=== PATIENT | female | born 2000 | race Caucasian/White ===

== ENCOUNTER 2024-12-25 17:00 | Emergency (ER) | payer BC, SELFPAY ==
[2024-12-25 17:02] VITALS: BP 146/85
[2024-12-25] MEDS: AUGMENTIN 875 MG/125 MG 1 TABLET PO (18:09)
--- NOTE | 2024-12-25 19:09 | ED.GENMED ---
History of Present Illness
General
Chief Complaint: Facial Problem
Source: patient
Exam Limitations: none
Time Seen by Provider: 12/25/24 17:36
Nursing documentation reviewed up to this point in time: agreed with
History of Present Illness
History of Present Illness:
see MDM
Past History
Past History
ED Past Medical History: None
Social History
Tobacco: Non-smoker
Review of Systems
Review of Systems
Allergies reviewed?: Yes
All Other Systems: Not applicable
Phy Exam
Physical Exam
Physical Exam:
GENERAL: Alert , in no apparent distress
R face slightly full R cheek, no skin changes
small round lump under the skin palpated abutting the nose ont he R side; mild tendenress
no eye swelling
EYE: pupils equal and reactive
NECK: Supple
ENT: o/p clr, mmm.
TMs normal
b/l turbinate redness, no obvious drainage; no wounds in the nose
CARDIAC: Regular rate and rhythm .
LUNGS: Clear breath sounds bilaterally, no acute respiratory distress, no wheezes/rales/rhonchi
SKIN: Warm and dry, skin intact.
PSYCH: Normal and appropriate interaction.
Course
Orders/Labs/Results
Orders:
Orders
12/25/24 17:56
Amoxicillin 875 mg/Clav 125 mg [Augmentin 875 mg/125 mg] 1 tablet PO NOW STA
Vital Signs
Initial and Last Documented VS:
Initial Vital Signs
Temp Pulse Resp BP Pulse Ox
36.9 C 105 18 146/85 100
12/25/24 17:02 12/25/24 17:02 12/25/24 17:02 12/25/24 17:02 12/25/24 17:02
Last Documented Vital Signs
Temp Pulse Resp BP Pulse Ox
36.9 C 105 18 146/85 100
12/25/24 17:02 12/25/24 17:02 12/25/24 17:02 12/25/24 17:02 12/25/24 19:11
MDM/Problems Addressed
Differential Diagnosis Includes:
see MDM
MDM/Problems Addressed:
Note:
CHIEF COMPLAINT(S)
Swelling on the side of the face with a palpable lump under the skin.
HISTORY OF PRESENT ILLNESS
The patient is a 24-year-old female with no significant past medical history who presents with swelling on the right side of her face, accompanied by a palpable lump under the skin near her nose on the R side above the nostril. She reports noticing
the lump a few days ago and initially thought it might be acne. However, she observed that the swelling has increased, and it started to progress closer to her eye this morning when she woke up.since waking the swelling has improved now and is just
of the R cheek The swelling is described as being under the skin without any visible inflammation inside her nose. The patient denies any associated pain, fever, or chills. She has experienced facial swelling but no significant congestion or sinus
issues, only mild nasal stuffiness and changes in the nasal discharge over the past few weeks, attributed to allergies.
PHYSICAL EXAM
- Facial Examination: The patient has minimal swelling on the right side of the face with a palpable, deep, round lump beneath the soft tissue approx 0.5 cm, but no obvious papule visible. There is no visible swelling or inflammation inside the
nasal cavity.
eye normal
ears normal
- Nursing notes reviewed and vital signs reviewed.
PROBLEM LIST
- Acute Problems:
- Facial swelling
- Subcutaneous lump on the cheek
PLAN
- Initiate treatment with amoxicillin-clavulanate (Augmentin) to be taken twice daily for 10 days. The patient may stop after 7 days if symptoms resolve, with further instruction to contact if the swelling extends into the eye or if new symptoms
develop, such as fever or eye movement pain.
- Advise the application of warm compresses to the affected area to encourage drainage and reduce the swelling.
- Pattern Painter the patient on maintaining an elevated head position while sleeping to prevent further facial swelling.
- Educate the patient on signs that warrant a return visit to the healthcare provider, including increased difficulty in opening the eye or persistent swelling.
- Recommend taking ibuprofen for its anti-inflammatory properties, along with consumption of probiotic yogurt to counteract potential gastrointestinal effects from antibiotics.
DIFFERENTIAL DIAGNOSIS
The Differential Diagnosis includes, in no particular order and is not limited to:
- Dental infection or abscess
- Subcutaneous cellulitis
- Facial abscess
- Dermatological cyst
- Lymphadenopathy
- Salivary gland infection
- Sinusitis with secondary inflammation
- Allergic reaction
- Viral infection
- Trauma-related hematoma
*Pulse Oximetry
SaO2: 100
Oxygen Mode of Delivery: Room air
Patient hypoxic: no (100)
*Critical Care Note
Total Time (30-74mins, 75-104mins- exclusive of procedures): Not Applicable
ED Attending Note
-
Portions of this chart may have been created with voice recognition software.� Occasional wrong word or��sound alike� substitutions may have occurred due to the inherent limitations of voice recognition software.
Discharge Plan
Departure
Patient Disposition: Home (Routine Discharge)
Date of Disposition: 12/25/24
Time of Disposition: 18:04
Patient with high blood pressure during this ER visit?: No
Condition: Fair
Covid-19: Not Applicable
Discharge Problem:
Facial swelling, Cyst of skin
Instructions: Skin Abscess
Prescriptions:
New
amoxicillin-pot clavulanate 875-125 mg tablet
1 tab PO BID Qty: 20 0RF
Referrals:
Nancy Maciel DO [Family Provider, Family Practice] - Follow up in 2-3 days
Activity Restrictions/Additional Instructions:
It seems as if you have a small cyst under the skin which is causing some localized swelling to your cheek. It is too early to drain at this point. Hopefully it comes to ahead with warm compresses. If it does you can gently squeeze it and see if
he can get any pus out. If it starts to grow you should return to the emergency department. Try Augmentin twice a day for 7 to 10 days as well. Ibuprofen 3 times a day for inflammation.
Sleep with an extra pillow tonight to help fully help with the swelling. Should you have more swelling in the morning, this is typical and it should get better as the day goes on but if you are having trouble moving your eye in its socket or you
are having any inability to open your eye because of severe swelling or redness need to return to the emergency department. Also return for fever, facial redness, significant pain or any concerns. The antibiotic that you are being given would also
cover for sinus infections as well.
Interventions
Interventions:
*Risk Screen - Suicide Last Done: 12/25/24 17:02
*General Assessment Last Done: 12/25/24 17:02
*Neglect/Abuse Screening Last Done: 12/25/24 17:02
*ED- Fall Risk Assessment Last Done: 12/25/24 18:16
*ED COVID-19 Vaccine History Last Done: 12/25/24 18:16
*Nursing Disposition Last Done: 12/25/24 18:17
ED- Neurological Assessment Last Done: 12/25/24 18:16
ED-Skin Assessment Last Done: 12/25/24 18:16
Discharge Date and Time
Discharge Date/Time: 12/25/24 18:18
Print Language: SYRIAN
== END 2024-12-25 18:18 | disposition home or self-care (01) ==
LOC: EMR 17:00
PROVIDERS: EMERGENCY PHYSICIAN Emergency Medicine; FAMILY PHYSICIAN Family Medicine
DX: R22.0 Localized swelling, mass and lump, head (principal); L72.9 Follicular cyst of the skin and subcutaneous tissue, unspecified
CPT/HCPCS: 99282